=== PATIENT | female | born 1985 | race American Indian/Alaskan Native ===

== ENCOUNTER 2019-10-27 16:20 | Emergency (ER) | payer OTHER, MEDICAID | END 2019-10-27 22:05 | disposition home or self-care (01) | LOC: ED 16:20 ==

== ENCOUNTER 2021-01-03 18:00 | Emergency (ER) | payer OTHER, MEDICAID ==
[2021-01-03 18:44] VITALS: BP 134/74
[2021-01-03] MEDS ORDERED: TETRACAINE 0.5% OPHTH SOLN 4ML OU STA (19:24)
[2021-01-03] MEDS ORDERED: FLUORESCEIN 1 MG STRIP OP ONE (19:24)
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
[2021-01-03] MEDS ORDERED: ACETAMINOPHEN 500 MG TAB PO ONE (19:26)
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
--- NOTE | 2021-01-03 21:06 | Ultrasound Report ---
ULTRASOUND OBSTETRIC INDICATION / CLINICAL INFORMATION: weeks preg. Clinical Gestational Age (GA): 7.6 weeks.days TECHNIQUE: Transabdominal. COMPARISON: None available. FINDINGS: GESTATIONAL SAC: Well-defined oval shape and intrauterine in location. YOLK SAC: No significant abnormality. EMBRYO/FETUS: No significant abnormality. - Wray-Rump Length = 4.12 cm = 11.0 weeks.days - Heart Rate, beats per minute (if present) = 174 ADNEXA: No significant abnormality. FREE FLUID: None. ADDITIONAL FINDINGS: None. IMPRESSION: 1. Single, living intrauterine with estimated sonographic age of 11.5 weeks.days. Signer Name: Bill Brown MD Signed: 01/03/2021 9:01 PM Workstation Name: [id number]
[2021-01-03] MEDS ORDERED: oxyCODONE 5 MG TAB PO ONE (22:23)
== END 2021-01-03 22:34 | disposition home or self-care (01) ==
LOC: ED 18:00
DX: S52.123A Displaced fracture of head of unspecified radius, initial encounter for closed fracture (principal); S00.83XA Contusion of other part of head, initial encounter; S00.531A Contusion of lip, initial encounter; Z79.899 Other long term (current) drug therapy; Z98.890 Other specified postprocedural states; V49.49XA Driver injured in collision with other motor vehicles in traffic accident, initial encounter; Y92.410 Unspecified street and highway as the place of occurrence of the external cause; Y93.89 Activity, other specified; Y99.8 Other external cause status
CPT/HCPCS: 76801